=== PATIENT | female | born 1980 | race Caucasian/White ===

== ENCOUNTER → 2017-09-22 | Outpatient (CLI) | payer OTHER ==
[~2017-09-22] MED LIST: IBUP800 PO
== END | disposition home or self-care (01) ==
LOC: LAB 12:05 → LAB SHORT 12:05
PROVIDERS: Obstetrics & Gynecology
DX: R87.610 Atypical squamous cells of undetermined significance on cytologic smear of cervix (ASC-US) (principal)
CPT/HCPCS: 87624; 88142

== ENCOUNTER → 2018-08-12 | Outpatient (CLI) | payer OTHER | END | disposition home or self-care (01) | LOC: LAB SHORT 11:55 → LAB 11:55 | DX: Z34.80 Encounter for supervision of other normal pregnancy, unspecified trimester (principal) | CPT/HCPCS: 87081; 87653 ==

== ENCOUNTER 2018-08-26 21:38 | Inpatient (IN) | payer OTHER ==
[~2018-08-26] VITALS: Ht 165.1 cm; Wt 0.4 kg
[2018-08-26 22:12] LABS: BASOPHILS ABSOLUTE AUTO 0.02 K/mm3 (0.00-0.23); BASOPHILS PERCENT AUTO 0 % (0-2); EOSINOPHILS ABSOLUTE AUTO 0.18 K/mm3 (0.00-0.68); EOSINOPHILS PERCENT AUTO 1 % (0-6); Hematocrit 37.2 % (33.0-51.0); Hemoglobin 12.2 g/dL (11.5-16.0); IMMATURE GRAN ABSOLUTE AUTO 0.09 K/mm3 (0.00-0.10); IMMATURE GRAN PERCENT AUTO 1 % (0-1); LYMPHOCYTES ABSOLUTE AUTO 3.29 K/mm3 (0.84-5.20); LYMPHOCYTES PERCENT AUTO 25 % (21-46); MONOCYTES ABSOLUTE AUTO 1.07 K/mm3 (0.16-1.47); MONOCYTES PERCENT AUTO 8 % (4-13); Mean Corpuscular HGB 30.5 pg (26.0-34.0); Mean Corpuscular HGB Conc 32.8 g/dL (31.5-36.5); Mean Corpuscular Volume 93 fL (80-100); Mean Platelet Volume 10.5 fL (9.1-12.4); NEUTROPHILS ABSOLUTE AUTO 8.43 K/mm3 (1.96-9.15); NEUTROPHILS PERCENT AUTO 64 % (41-73); Platelet Count 293 K/mm3 (150-400); RDW Coefficient Variation 13.7 % (11.7-14.2); RDW Standard Deviation 47.1 fL (35.1-46.3); White Blood Cell Count 13.08 K/mm3 (4.00-11.30)
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
--- NOTE | 2018-08-27 18:54 | NUR ---
REPORT TO ONCOMING SHIFT
--- NOTE | 2018-08-28 10:34 | NUR ---
PT DISCHARGED HOME WITH SO AND NB. DISCHARGE INSTRUCTIONS REVIEWED WITH PT AND SO, BOTH VERBALIZED UNDERSTANDING AND DENY ANY FURTHER QUESTIONS OR CONCERNS. PRESCRIPTION FOR IBUPROFEN GIVEN. PT AMBULATORY TO CAR.
== END 2018-08-28 10:16 | disposition home or self-care (01) | DRG 807 ==
LOC: BC 21:38
PROVIDERS: Obstetrics & Gynecology; ADMIT Obstetrics & Gynecology
PROC: 10E0XZZ Delivery of Products of Conception, External Approach (ICD-10-PCS; principal; 2018-08-27)
DX: O80 Encounter for full-term uncomplicated delivery (principal); Z37.0 Single live birth; Z3A.39 39 weeks gestation of pregnancy
CPT/HCPCS: 36415; 51702; 85025; J1885; J2590; J7120

== ENCOUNTER 2018-11-04 12:40 | Day surgery (SDC) | payer OTHER ==
[~2018-11-04] VITALS: Ht 165.1 cm; Wt 68.9 kg
== END 2018-11-04 15:17 | disposition home or self-care (01) ==
LOC: ORSCSDS 12:40
PROVIDERS: Obstetrics & Gynecology
PROC: 0UT74ZZ Resection of Bilateral Fallopian Tubes, Percutaneous Endoscopic Approach (ICD-10-PCS; principal; 2018-11-04 14:00)
DX: Z30.2 Encounter for sterilization (principal); F17.210 Nicotine dependence, cigarettes, uncomplicated
CPT/HCPCS: 88302; J1100; J2250; J2405; J2704; J3010

== ENCOUNTER → 2018-12-21 | Outpatient (CLI) | payer OTHER ==
[2018-12-23 19:06] LABS: HPV 16 Negative (Negative); HPV 18 Negative (Negative); HPV OTHER HR TYPES Positive (Negative)
== END ==
LOC: LAB SHORT 18:35 → LAB 18:35
PROVIDERS: Obstetrics & Gynecology
DX: Z01.419 Encounter for gynecological examination (general) (routine) without abnormal findings (principal)
CPT/HCPCS: 87624; 87625; G0123

== ENCOUNTER → 2019-01-26 | Outpatient (CLI) | payer OTHER | END | disposition home or self-care (01) | LOC: PLD 15:21 → LAB SHORT 15:21 | DX: R87.610 Atypical squamous cells of undetermined significance on cytologic smear of cervix (ASC-US) (principal); R87.618 Other abnormal cytological findings on specimens from cervix uteri | CPT/HCPCS: 88305 ==

== ENCOUNTER → 2021-07-30 | Outpatient (CLI) | payer OTHER ==
[2021-07-31 18:10] LABS: HPV 16 Negative (Negative); HPV 18 Negative (Negative); HPV OTHER HR TYPES Negative (Negative)
== END | disposition home or self-care (01) ==
LOC: LAB 12:09 → LAB SHORT 12:09
PROVIDERS: Obstetrics & Gynecology
DX: Z01.419 Encounter for gynecological examination (general) (routine) without abnormal findings (principal)
CPT/HCPCS: 87624; G0123